=== PATIENT | female | born 2000 | race African-American/Black ===

== ENCOUNTER 2020-10-20 14:49 | Emergency (ER) | payer OTHER ==
--- OUTSIDE RECORDS SUMMARY | 2020-10-20 14:52 | XMS REPORT | Continuity of Care Document ---
:2000 Author Organization [facility] t Address [address] [place] [address] Care Team Providers Name Role Phone Nurse, Women's Health Attending Clinician Unavailable Rajinder Villagomez MD Attending Clinician Doctor Unassigned, Name Attending Clinician Unavailable Yousif RN Attending Clinician Unavailable 2, Lab Attending Clinician Unavailable Ultrasound, Mfm Attending Clinician Unavailable Shaye CARLISLE Attending Clinician Akinsidutch LEVY C Attending Clinician Ultrasound Attending Clinician Unavailable 1, Us Room Attending Clinician Unavailable Rajinder Villagomez MD Admitting Clinician Problems This patient has no known problems. Allergies, Adverse Reactions, Alerts This patient has no known allergies or adverse reactions. Medications This patient has no known medications. Procedures This patient has no known procedures. Encounters Start End Encounter Admission Attending Care Care Encounter Source Date/Time Date/Time Type Type Clinicians Facility Department ID 2020-09-14 2020-09-14 Nurse Nurse, [facility] 1.2.840.114 [id number] 10:23:31 10:38:15 Visit Dirk Minot 350.1.13.10 Formerly [facility] 4.2.7.2.686 [place] [phone] [address] 2020-06-16 2020-06-16 Nurse Nurse, [facility] 1.2.840.114 [id number] 13:59:43 14:23:08 Visit Dirk Minot 350.1.13.10 Formerly [facility] 4.2.7.2.686 Professio [phone] [address] 2020-04-15 2020-04-15 Telemedici Samanta Villagomez [facility] 1.2.840.114 [id number] 08:20:07 08:35:07 ne Visit Rajinder Smith 350.1.13.10 [place] 4.2.7.2.686 Professio [phone] [address] 2020-03-18 2020-03-18 Routine Samanta Villagomez [facility] 1.2.800.350 [id number] 16:07:42 17:24:35 Cam Sarah 350.1.13.10 Visit [place] 4.2.7.2.686 Professio [phone] [address] 2020-03-18 2020-03-18 Orders Doctor DENTON 1.2.840.114 [id number] 00:00:00 00:00:00 Only Unassigned, [facility] 350.1.13.10 [place] [facility] 4.2.7.2.686 [id number] [facility] 2020-03-09 2020-03-09 Nurse Nurse, [facility] 1.2.840.114 [id number] 14:40:58 14:55:58 Visit Women'alexey Smith 350.1.13.10 Formerly [facility] 4.2.7.2.686 Professio [phone] [address] 2020-03-06 2020-03-06 Nurse Nurse, [facility] 1.2.840.114 [id number] 14:12:11 14:45:07 Visit Women'alexey Smith 350.1.13.10 Formerly [facility] 4.2.7.2.686 Professio [phone] [address] 2020-03-04 2020-03-04 Nurse Nurse, [facility] 1.2.840.114 [id number] 10:11:19 10:47:00 Visit Women's Sarah 350.1.13.10 Formerly [facility] 4.2.7.2.686 Professio [phone] [address] 2020-02-29 2020-02-29 Nurse Renetta Dodd 1.2.840.114 [id number] 00:00:00 00:00:00 Triage [facility] 350.1.13.10 [facility]ITAL 4.2.7.2.686 [id number] 2020-02-25 2020-02-28 Hospital Samanta Villgaomez [facility] 1.2.840.114 [id number] 14:33:00 13:00:00 Encounter Cam [place] 350.1.13.10 [place] 4.2.7.2.686 [place] [id number] 2020-02-25 2020-02-25 Routine Samanta Villagomez [facility] 1.2.587.990 [id number] 13:11:47 14:08:21 Cam [place] 350.1.13.10 Visit [place] 4.2.7.2.686 Professio [phone] [facility] 2020-02-25 2020-02-25 Orders Doctor BERTIN 1.2.840.114 [id number] 00:00:00 00:00:00 Only Unassigned, NEDRA 350.1.13.10 [place] [facility] 4.2.7.2.686 [id number] 2020-02-18 2020-02-18 Case Samanta Villagomez [facility] 1.2.180.857 [id number] 00:00:00 00:00:00 Management Cam [place] 350.1.13.10 [place] 4.2.7.2.686 Professio [phone] [facility] 2020-02-17 2020-02-17 Treater 2, Adc Lab [facility] 1.2.840.114 [id number] 09:35:11 09:50:11 Visit [place] 350.1.13.10 [place] 4.2.7.2.686 Professio [id number] [facility] 2020-02-17 2020-02-17 Routine Samanta Villagomez [facility] [id number] [id number] 08:07:34 09:14:39 Cam [place] 350.1.13.10 Visit [place] 4.2.7.2.686 Professio [phone] [facility] 2020-02-17 2020-02-17 Orders Doctor BERTIN 1.2.840.114 [id number] 00:00:00 00:00:00 Only Unassigned, NEDRA 350.1.13.10 [place] [facility] 4.2.7.2.686 [id number] [facility] 2020-02-07 2020-02-07 Treater Ultrasound, [facility] 1.2.840.114 [id number] 08:26:07 08:50:45 Visit Adc Mfmeryl [place] 350.1.13.10 [place] 4.2.7.2.686 Professio [phone] [address] 2020-02-03 2020-02-03 Routine Vanaphan, [facility] 1.2.328.654 [id number] 09:35:20 10:16:17 Smitha [place] 350.1.13.10 Visit [place] 4.2.7.2.686 Professio [phone] [address] 2020-01-20 2020-01-20 Routine Samanta Villagomez [facility] 1.2.820.664 [id number] 11:02:47 11:50:33 Cam [place] 350.1.13.10 Visit [place] 4.2.7.2.686 Professio [phone] [address] 2020-01-09 2020-01-09 Telephone Samanta Villagomez [facility] 1.2.840.114 [id number] 00:00:00 00:00:00 Cam [place] 350.1.13.10 [place] 4.2.7.2.686 Professio [phone] [address] 2020-01-07 2020-01-07 Routine Shaye, [facility] 1.2.034.449 [id number] 16:01:23 16:33:08 Smitha [place] 350.1.13.10 Visit [place] 4.2.7.2.686 Professio [phone] [address] 2019-12-23 2019-12-23 Abstract Akinsidutch, [facility] 1.2.840.114 [id number] 00:00:00 00:00:00 Yesi Aviles COST CONTROL ANALYST 350.1.13.10 [facility] 4.2.7.2.686 MATERNAL [phone] & CHILD [address] [place] [address] 2019-12-20 2019-12-20 Treater Ultrasound, [facility] 1.2.840.114 [id number] 13:21:52 14:06:52 Visit Adc Mfm [place] 350.1.13.10 [place] 4.2.7.2.686 Professio [id number] [address] 2019-12-17 2019-12-17 Routine Samanta Villagomez [facility] 1.2.721.569 [id number] 13:00:30 13:42:20 Cam [place] 350.1.13.10 Visit [place] 4.2.7.2.686 Professio [id number] [address] 2019-11-22 2019-11-22 Treater 2, Adc Lab [facility] 1.2.840.114 [id number] 14:31:08 14:46:08 Visit [place] 350.1.13.10 [place] 4.2.7.2.686 Professio [phone] [address] 2019-11-19 2019-11-19 Initial VillagomezSamanta [facility] 1.2.134.243 [id number] 14:44:38 15:37:40 Cam [place] 350.1.13.10 Visit [place] 4.2.7.2.686 Professio [phone] [address] 2019-11-12 2019-11-12 Routine Akinsipe, [facility] 1.2.136.121 [id number] 13:18:28 14:09:03 Yesi C COST CONTROL ANALYST 350.1.13.10 Visit REGIONAL 4.2.7.2.686 MATERNAL [id number] & CHILD 107 [facility] 2019-10-28 2019-10-28 Abstract Akinpe, [facility] 1.2.840.114 [id number] 00:00:00 00:00:00 Yesi C COST CONTROL ANALYST 350.1.13.10 REGIONAL 4.2.7.2.686 MATERNAL [id number] & CHILD 107 [facility] 2019-10-23 2019-10-23 Treater Ultrasound, [facility] 1.2.840.114 [id number] 13:02:22 14:02:22 Visit Ang-Mfm COST CONTROL ANALYST 350.1.13.10 REGIONAL 4.2.7.2.686 MATERNAL [phone] & CHILD 369 [facility] 2019-10-15 2019-10-15 Routine Akinsipe, [facility] 1.2.607.843 [id number] 13:52:54 14:31:22 Yesi C COST CONTROL ANALYST 350.1.13.10 Visit REGIONAL 4.2.7.2.686 MATERNAL [id number] & CHILD 107 [facility] 2019-09-18 2019-09-18 Abstract Arnoldpe, [facility] 1.2.840.114 [id number] 00:00:00 00:00:00 Yesi C COST CONTROL ANALYST 350.1.13.10 REGIONAL 4.2.7.2.686 MATERNAL [id number] & CHILD 107 [facility] 2019-09-17 2019-09-17 Treater 1Jessica [facility] 1.2.840.114 [id number] 09:50:41 10:18:36 Visit Us Room COST CONTROL ANALYST 350.1.13.10 REGIONAL 4.2.7.2.686 MATERNAL [phone] & CHILD [address] [facility] 2019-09-16 2019-09-16 Initial Akinpe, [facility] 1.2.396.974 [id number] 13:26:45 14:18:57 Yesi C COST CONTROL ANALYST 350.1.13.10 Visit REGIONAL 4.2.7.2.686 MATERNAL [phone] & CHILD 107 [facility] 2019-09-16 2019-09-16 Orders Doctor BERTIN 1.2.840.114 [id number] 00:00:00 00:00:00 Only Unassigned, NEDRA 350.1.13.10 [place] [facility] 4.2.7.2.686 [phone] 009 Results This patient has no known results.
[2020-10-20] MEDS ORDERED: DIPHENHYDRAMINE 25 MG TAB/CAP ONE (16:02)
[2020-10-20] MEDS ORDERED: FAMOTIDINE 20 MG TAB ONE (16:03)
[2020-10-20] MEDS ORDERED: dexAMETHasone 10 MG/ML VIAL ONE (16:03)
--- NOTE | 2020-10-20 16:40 | EDPHYS ---
Physician Documentation [facility] Name: Danuta Dubose Age: 19 yrs Sex: Female : 2000 Arrival Date: 10/20/2020 Time: 14:50 Bed 24 Private MD: ED Physician Rudolph Cervantes HPI: 10/20 15:39 This 19 yrs old Black Female presents to ER via Ambulatory with complaints of Facial pm1 Swelling - Lip Swelling. 15:39 The patient presents with swelling of the lips, swelling to left side of face. Onset: pm1 The symptoms/episode began/occurred this morning. Associated signs and symptoms: Pertinent negatives: chest pain, fever, shortness of breath, sore throat. Possible causes: The patient has no known obvious cause for the symptoms. At home the patient or guardian has treated the symptoms with nothing. Severity of symptoms: in the emergency department the symptoms are unchanged. The patient has not experienced similar symptoms in the past. The patient has not recently seen a physician. Patient woke up this AM with lip swelling and swelling to the left side of face. Patient does not take any medications. Denies exposure to new foods. Historical: - Allergies: 15:37 No Known Allergies; aa5 - PMHx: 15:37 Preeclampsia; aa5 - PSHx: 15:37 None; aa5 - Immunization history:: Adult Immunizations unknown. - Social history:: Smoking status: Patient denies any tobacco usage or history of. ROS: 15:39 Constitutional: Negative for fever, chills, and weight loss, Eyes: Negative for injury, pm1 pain, redness, and discharge. 15:39 Cardiovascular: Negative for chest pain, palpitations, and edema, Respiratory: Negative for shortness of breath, cough, wheezing, and pleuritic chest pain, Abdomen/GI: Negative for abdominal pain, nausea, vomiting, diarrhea, and constipation, MS/Extremity: Negative for injury and deformity, Skin: Negative for injury, rash, and discoloration, Neuro: Negative for headache, weakness, numbness, tingling, and seizure. 15:39 ENT: Positive for lip swelling, Negative for sore throat, difficulty swallowing, difficulty handling secretions, hoarseness. 15:39 All other systems are negative. Exam: 15:39 Constitutional: This is a well developed, well nourished patient who is awake, alert, pm1 and in no acute distress. Head/Face: Normocephalic, atraumatic. 15:39 Skin: Warm, dry with normal turgor. Normal color with no rashes, no lesions, and no evidence of cellulitis. MS/ Extremity: Pulses equal, no cyanosis. Neurovascular intact. Full, normal range of motion. 15:39 Eyes: Exam is negative for acute changes, Periorbital structures: appear normal, no acute changes, Extraocular movements: no acute changes, Conjunctiva: no acute changes, no injection, Lids and lashes: appear normal, bilaterally, no acute changes. 15:39 ENT: Mouth: Lips: normal, moist, mild lower lip and left side of upper lip swelling, Oral mucosa: normal, pink and intact, moist, Gums: normal with healthy appearance, Tongue: is normal, No trismus present, Voice: no acute changes. 15:39 Neck: Exam negative for acute changes, ROM/movement: is normal, is supple. 15:39 Cardiovascular: Exam negative for acute changes, Rate: normal, Rhythm: regular, Pulses: no pulse deficits are appreciated. 15:39 Respiratory: Exam negative for acute changes, respiratory distress, shortness of breath, Breath sounds: are clear throughout. 15:39 Neuro: Exam negative for acute changes, Orientation: is normal, Mentation: is normal, Motor: is normal, moves all fours. Vital Signs: 15:36 BP 119 / 86; Pulse 99; Resp 18 S; Temp 99.0(TE); Pulse Ox 97% on R/A; Weight 68.04 kg aa5 (R); Height 5 ft. 4 in. (162.56 cm) (R); 15:36 Body Mass Index 25.75 (68.04 kg, 162.56 cm) aa5 MDM: 15:45 Data reviewed: vital signs. Data interpreted: Pulse oximetry: on room air is 97 %. pm1 Interpretation: normal. 15:46 Patient medically screened. pm1 16:38 Counseling: I had a detailed discussion with the patient and/or guardian regarding: the pm1 historical points, exam findings, and any diagnostic results supporting the discharge/admit diagnosis, the need for outpatient follow up, an allergy/technical sales specialist, a family practitioner, to return to the emergency department if symptoms worsen or persist or if there are any questions or concerns that arise at home. 16:41 ED course: Patient's child is 8 months old. Instructed to pump and dump breast milk pm1 while on medications. Administered Medications: 15:45 Drug: Pepcid (famotidine) 20 mg Route: PO; aa5 16:00 Follow up: Response: No adverse reaction iw 15:45 Drug: Benadryl (diphenhydrAMINE) 25 mg Route: PO; aa5 16:00 Follow up: Response: No adverse reaction iw 15:45 Drug: Decadron (dexamethasone) 10 mg Route: IM; Site: right gluteus; aa5 15:50 Follow up: Response: No adverse reaction iw Disposition: 10/21 07:10 Co-signature as Attending Physician, Rudolph Cervantes MD I agree with the assessment and brian plan of care. Disposition Summary: 10/20/20 16:39 Discharge Ordered Location: Home pm1 Problem: new pm1 Symptoms: have improved pm1 Condition: Stable pm1 Diagnosis - Localized swelling, mass and lump, head - allergic reaction pm1 Followup: pm1 - With: Emergency Department - When: As needed - Reason: Worsening of condition Followup: pm1 - With: Private Physician - When: 2 - 3 days - Reason: Recheck today's complaints, Continuance of care, Re-evaluation by your physician Discharge Instructions: - Discharge Summary Sheet pm1 - Allergies, Adult pm1 Forms: - Medication Reconciliation Form pm1 - Thank You Letter pm1 - Antibiotic Education pm1 - Prescription Opioid Use pm1 Prescriptions: - Benadryl 25 mg Oral Capsule - take 1 capsule by ORAL route every 6 hours As needed; 30 tablet; Refills: 0, pm1 Product Selection Permitted - Pepcid 20 mg Oral Tablet - take 1 tablet by ORAL route every 12 hours for 10 days; 20 tablet; Refills: 0, pm1 Product Selection Permitted - Prednisone 20 mg Oral Tablet - take 3 tablets by ORAL route once daily for 5 days; 15 tablet; Refills: 0, pm1 Product Selection Permitted Signatures: Rudolph Cervantes MD MD cha Calderon, Audri RN RN aa5 Oscar Ferrera, PAM DRAW OFF WORKER pm1 Radha Jacobo RN iw Corrections: (The following items were deleted from the chart) 10/20 15:38 15:37 PMHx: Hypertensive disorder; aa5 aa5
--- NOTE | 2020-10-20 16:40 | ER ---
Nurse's Notes [facility] Name: Danuta Dubose Age: 19 yrs Sex: Female : 2000 Arrival Date: 10/20/2020 Time: 14:50 Bed 24 Private MD: Diagnosis: Localized swelling, mass and lump, head-allergic reaction Presentation: 10/20 15:36 Chief complaint: Patient states: "my left ear got really warm and then my lips started aa5 swelling up on the left side". Coronavirus screen: At this time, the client does not indicate any symptoms associated with coronavirus-19. Ebola Screen: Patient negative for fever greater than or equal to 101.5 degrees Fahrenheit, and additional compatible Ebola Virus Disease symptoms. Initial Sepsis Screen: Does the patient meet any 2 criteria? No. Patient's initial sepsis screen is negative. Does the patient have a suspected source of infection? No. Patient's initial sepsis screen is negative. Risk Assessment: Do you want to hurt yourself or someone else? Patient reports no desire to harm self or others. Onset of symptoms was October 20, 2020. 15:36 Method Of Arrival: Ambulatory aa5 15:36 Acuity: VERITO 4 aa5 Historical: - Allergies: 15:37 No Known Allergies; aa5 - PMHx: 15:37 Preeclampsia; aa5 - PSHx: 15:37 None; aa5 - Immunization history:: Adult Immunizations unknown. - Social history:: Smoking status: Patient denies any tobacco usage or history of. Vital Signs: 15:36 BP 119 / 86; Pulse 99; Resp 18 S; Temp 99.0(TE); Pulse Ox 97% on R/A; Weight 68.04 kg aa5 (R); Height 5 ft. 4 in. (162.56 cm) (R); 15:36 Body Mass Index 25.75 (68.04 kg, 162.56 cm) aa5 ED Course: 14:50 Patient arrived in ED. ds1 15:36 Triage completed. aa5 15:36 Arm band placed on. aa5 15:38 Oscar Ferrera NP is PHCP. pm1 15:38 Rudolph Cervantes MD is Attending Physician. pm1 16:56 Radha Jacobo RN is Primary Nurse. iw Administered Medications: 15:45 Drug: Pepcid (famotidine) 20 mg Route: PO; aa5 16:00 Follow up: Response: No adverse reaction iw 15:45 Drug: Benadryl (diphenhydrAMINE) 25 mg Route: PO; aa5 16:00 Follow up: Response: No adverse reaction iw 15:45 Drug: Decadron (dexamethasone) 10 mg Route: IM; Site: right gluteus; aa5 15:50 Follow up: Response: No adverse reaction iw Outcome: 16:39 Discharge ordered by MD. pm1 16:57 Patient left the ED. iw Signatures: Tammie Carver ds1 Radha Jacobo RN RN iw Rosalia Painting RN RN aa5 Oscar Ferrera, PAM ELEVATOR TROUBLESHOOTER pm1 Corrections: (The following items were deleted from the chart) 15:38 15:37 PMHx: Hypertensive disorder; aa5 aa5
[2020-10-20 17:06] VITALS: BP 119/86; TEMP 99; O2SAT 97
== END 2020-10-20 16:57 | disposition home or self-care (01) ==
LOC: ER 14:49
DX: R22.9 Localized swelling, mass and lump, unspecified (principal)
CPT/HCPCS: 96372; 99282; J1100

== ENCOUNTER 2020-10-25 10:30 | Emergency (ER) | payer OTHER ==
--- OUTSIDE RECORDS SUMMARY | 2020-10-25 10:32 | XMS REPORT | Continuity of Care Document ---
:[address] [facility] t Address [address] [place] [address] Care Team Providers Name Role Phone Nurse, Women's Health Attending Clinician Unavailable Rajinder Villagomez MD Attending Clinician Doctor Unassigned, Name Attending Clinician Unavailable Yousif KAUFMAN Attending Clinician Unavailable 2, Lab Attending Clinician Unavailable Ultrasound, [facility] Attending Clinician Unavailable Shaye CARLISLE Attending Clinician Akinsipe BOP C Attending Clinician Ultrasound Attending Clinician Unavailable [...] Facility Department ID 2020-09-14 2020-09-14 Nurse Nurse, [facility] 1.2.840.114 [id number] 10:23:31 10:38:15 Visit Dirk Zuritaton 350.1.13.10 [facility] 4.2.7.2.686 [place] [phone] [address] 2020-06-16 2020-06-16 Nurse Nurse, [facility] 1.2.840.114 [id number] 13:59:43 14:23:08 Visit Dirk Zuritaton 350.1.13.10 [facility] 4.2.7.2.686 Professio [phone] [address] 2020-04-15 2020-04-15 Telemedici Samanta Villagomez [facility] [[email or web address]] 1.2.840.114 [id number] 08:20:07 08:35:07 ne Visit Rajinder Smith 350.1.13.10 [place] 4.2.7.2.686 Professio [phone] [address] 2020-03-18 2020-03-18 Routine Samanta Villagomez [facility] [[email or web address]] [id number] 16:07:42 17:24:35 Cam Sarah 350.1.13.10 Visit [place] 4.2.7.2.686 Professio [phone] [address] 2020-03-18 2020-03-18 Orders Doctor DENTON 1.2.840.114 [id number] 00:00:00 00:00:00 Only Unassigned, NEDRA 350.1.13.10 [place] [facility] 4.2.7.2.686 [phone] [facility] 2020-03-09 2020-03-09 Nurse Nurse, [facility] 1.2.840.114 [id number] 14:40:58 14:55:58 Visit Dirk Smith 350.1.13.10 [facility] 4.2.7.2.686 Professio [phone] [address] 2020-03-06 2020-03-06 Nurse Nurse, [facility] 1.2.840.114 [id number] 14:12:11 14:45:07 Visit Women'alexey Smith 350.1.13.10 [facility] 4.2.7.2.686 Professio [phone] [address] 2020-03-04 2020-03-04 Nurse Nurse, [facility] 1.2.840.114 [id number] 10:11:19 10:47:00 Visit Women'alexey Smith 350.1.13.10 [facility] 4.2.7.2.686 Professio [phone] [address] 2020-02-29 2020-02-29 Nurse Renetta Dodd 1.2.840.114 [id number] 00:00:00 00:00:00 Triage NED[facility] 350.1.13.10 HOSPITAL [phone] 019 2020-02-25 2020-02-28 Hospital Samanta Villagomez [facility] 1.2.840.114 [id number] 14:33:00 13:00:00 Encounter Cam [place] 350.1.13.10 [place] 4.2.7.2.686 [place] [phone] [phone] 2020-02-25 Routine Samanta Villagomez [facility] [[email or web address]] 1.2.468.470 [id number] 13:11:47 14:08:21 Cam [place] 350.1.13.10 Visit [place] 4.2.7.2.686 Professio [phone] [facility] 2020-02-25 2020-02-25 Orders Doctor BERTIN 1.2.840.114 [id number] 00:00:00 00:00:00 Only Unassigned, NEDRA 350.1.13.10 [place] [facility] [phone] 009 2020-02-18 2020-02-18 Case Samanta Villagomez [facility] [[email or web address]] 1.2.032.659 [id number] 00:00:00 00:00:00 Management Cam [place] 350.1.13.10 [place] 4.2.7.2.686 Professio [phone] [facility] 2020-02-17 2020-02-17 Dust Control Engineer 2, [facility] [[email or web address]] 1.2.840.114 [id number] 09:35:11 09:50:11 Visit [place] 350.1.13.10 [place] 4.2.7.2.686 Professio [phone] [facility] 2020-02-17 2020-02-17 Routine Samanta Villagomez [facility] [[email or web address]] 1.2.644.528 [id number] 08:07:34 09:14:39 Cam [place] 350.1.13.10 Visit [place] 4.2.7.2.686 Professio [phone] [facility] 2020-02-17 2020-02-17 Orders Doctor BERTIN 1.2.840.114 [id number] 00:00:00 00:00:00 Only Unassigned, NEDRA 350.1.13.10 [place] [facility] 4.2.7.2.686 [id number] [facility] 2020-02-07 2020-02-07 Dust Control Engineer Ultrasound, [facility] [[email or web address]] 1.2.840.114 [id number] 08:26:07 08:50:45 Visit Adc Mfm [place] 350.1.13.10 [place] 4.2.7.2.686 Professio [phone] [address] 2020-02-03 2020-02-03 Routine Vanaphan, [facility] 1.2.444.796 [id number] 09:35:20 10:16:17 [place]a [place] 350.1.13.10 Visit [place] 4.2.7.2.686 Professio [phone] [address] 2020-01-20 2020-01-20 Routine Samanta Villagomez [facility] [[email or web address]] 1.2.103.614 [id number] 11:02:47 11:50:33 Cam [place] 350.1.13.10 Visit [place] 4.2.7.2.686 Professio [phone] [address] 2020-01-09 2020-01-09 Telephone Samanta Villagomez [facility] [[email or web address]] 1.2.840.114 [id number] 00:00:00 00:00:00 Cam [place] 350.1.13.10 [place] 4.2.7.2.686 Professio [phone] [address] 2020-01-07 2020-01-07 Routine Shaye, [facility] [[email or web address]] 1.2.811.469 [id number] 16:01:23 16:33:08 Smitha [place] 350.1.13.10 Visit [place] 4.2.7.2.686 Professio [phone] [address] 2019-12-23 2019-12-23 Abstract Akinsidutch, [facility] [[email or web address]] 1.2.840.114 [id number] 00:00:00 00:00:00 Yesi Aviles EDUCATIONAL SIGN LANGUAGE INTERPRETER 350.1.13.10 [facility] 4.2.7.2.686 MATERNAL [phone] & CHILD [address] [place] [address] 2019-12-20 2019-12-20 Dust Control Engineer Ultrasound, [facility] 1.2.840.114 [id number] 13:21:52 14:06:52 Visit Adc Mfm [place] 350.1.13.10 [place] 4.2.7.2.686 Professio [phone] [address] 2019-12-17 2019-12-17 Routine Samanta Villagomez [facility] 1.2.126.515 [id number] 13:00:30 13:42:20 Cam [place] 350.1.13.10 Visit [place] 4.2.7.2.686 Professio [phone] [address] 2019-11-22 2019-11-22 Dust Control Engineer 2, [facility]c Lab [facility] 1.2.840.114 [id number] 14:31:08 14:46:08 Visit [place] 350.1.13.10 [place] 4.2.7.2.686 Professio [phone] [address] 2019-11-19 2019-11-19 Initial VillagomezSamanta [facility] 1.2.054.422 [id number] 14:44:38 15:37:40 Cam [place] 350.1.13.10 Visit [place] 4.2.7.2.686 Professio [phone] [address] 2019-11-12 2019-11-12 Routine Akinsipe, [facility] 1.2.714.325 [id number] 13:18:28 14:09:03 Yesi C EDUCATIONAL SIGN LANGUAGE INTERPRETER 350.1.13.10 Visit REGIONAL 4.2.7.2.686 MATERNAL [phone] & CHILD [address] 2019-10-28 2019-10-28 Abstract Akinsipe, [facility] 1.2.840.114 [id number] 00:00:00 00:00:00 Yesi C EDUCATIONAL SIGN LANGUAGE INTERPRETER 350.1.13.10 [facility] 4.2.7.2.686 MATERNAL [phone] & CHILD [address] 2019-10-23 2019-10-23 Dust Control Engineer Ultrasound, [facility] [[email or web address]] 1.2.840.114 [id number] 13:02:22 14:02:22 Visit Ang-[facility] EDUCATIONAL SIGN LANGUAGE INTERPRETER 350.1.13.10 [facility]AL 4.2.7.2.686 MATERNAL [phone] & CHILD [address] 2019-10-15 2019-10-15 Routine Akinpe, [facility] [[email or web address]] 1.2.834.848 [id number] 13:52:54 14:31:22 Yesi C EDUCATIONAL SIGN LANGUAGE INTERPRETER 350.1.13.10 Visit REGIONAL 4.2.7.2.686 MATERNAL [phone] & CHILD [address] 2019-09-18 2019-09-18 Abstract Arnolddutch, [facility] [[email or web address]] 1.2.840.114 [id number] 00:00:00 00:00:00 Yesi C EDUCATIONAL SIGN LANGUAGE INTERPRETER 350.1.13.10 REGIONAL 4.2.7.2.686 MATERNAL [phone] & CHILD [address] 2019-09-17 2019-09-17 Dust Control Engineer 1Jessica [facility] [[email or web address]] 1.2.840.114 [id number] 09:50:41 10:18:36 Visit Us Room EDUCATIONAL SIGN LANGUAGE INTERPRETER 350.1.13.10 REG[facility] 4.2.7.2.686 MATERNAL [phone] & CHILD [address] [facility] 2019-09-16 2019-09-16 Initial Arnolddutch [facility] [[email or web address]] 1.2.309.747 [id number] 13:26:45 14:18:57 Yesi 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
--- NOTE | 2020-10-25 12:40 | ER ---
Nurse's Notes [facility] Name: Danuta Dubose Age: 19 yrs Sex: Female : 2000 Arrival Date: 10/25/2020 Time: 10:30 Bed Waiting Private MD: Diagnosis: Coronavirus infection, unspecified Presentation: 10/25 10:41 Chief complaint: Patient states: was seen here for lip swelling, then she lost iw her taste and smell for three days, wants to be tested. Coronavirus screen: Client presents with at least one sign or symptom that may indicate coronavirus-19. Ebola Screen: Patient negative for fever greater than or equal to 101.5 degrees Fahrenheit, and additional compatible Ebola Virus Disease symptoms Patient denies exposure to infectious person. Patient denies travel to an Ebola-affected area in the 21 days before illness onset. No symptoms or risks identified at this time. Initial Sepsis Screen: Does the patient meet any 2 criteria? No. Patient's initial sepsis screen is negative. Does the patient have a suspected source of infection? No. Patient's initial sepsis screen is negative. Risk Assessment: Do you want to hurt yourself or someone else? Patient reports no desire to harm self or others. Onset of symptoms was October 22, 2020. 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 Screenin:45 Abuse screen: Denies threats or abuse. Denies injuries from another. Nutritional iw screening: No deficits noted. Tuberculosis screening: No symptoms or risk factors identified. Fall Risk None identified. Assessment: 12:00 General: Appears in no apparent distress. Behavior is calm, cooperative. Pain: Denies iw pain. Neuro: Level of Consciousness is awake, alert, obeys commands, Oriented to person, place, time, situation, Moves all extremities. Full function. Cardiovascular: Patient's skin is warm and dry. Respiratory: Respiratory effort is even, unlabored. Vital Signs: 10:41 BP 120 / 80; Pulse 78; Resp 16; Temp 97.2; Pulse Ox 98% on R/A; Weight 68.04 kg; Height iw 5 ft. 4 in. (162.56 cm); 10:41 Body Mass Index 25.75 (68.04 kg, 162.56 cm) iw ED Course: 10:30 Patient arrived in ED. as 10:42 Valencia [facility]C [facility] kb 10:42 Rudolph Cervantes MD is Attending Physician. kb 10:42 Triage completed. iw 12:44 Radha Jacobo, RN is Primary Nurse. iw 12:45 Arm band placed on. iw 12:45 No provider procedures requiring assistance completed. Patient did not have IV access iw during this emergency room visit. Administered Medications: No medications were administered Outcome: 12:40 Discharge ordered by . kb 12:49 Patient left the ED. kb Signatures: Valencia Mosher FNP-C FNP-Barbara Prieto as Radha Jacobo, RN RN iw Corrections: (The following items were deleted from the chart) 10:43 10:41 Pulse 78bpm; Resp 16bpm; Pulse Ox 98% RA; Temp 97.2F; 68.04 kg; Height 5 ft. 4 iw in.; BMI: 25.7; iw
--- NOTE | 2020-10-25 12:40 | EDPHYS ---
Physician Documentation [facility] Name: Danuta Dubose Age: 19 yrs Sex: Female : 2000 Arrival Date: 10/25/2020 Time: 10:30 Bed Waiting Private MD: ED Physician Rudolph Cervantes HPI: 10/25 13:30 This 19 yrs old Black Female presents to ER via Ambulatory with complaints of Covid kb Test. 13:31 Pt reports no taste and decreased smell for 3 days. Onset: The symptoms/episode kb began/occurred 3 day(s) ago. Severity of symptoms: At their worst the symptoms were mild in the emergency department the symptoms are unchanged. The patient has not experienced similar symptoms in the past. The patient has not recently seen a physician. Historical: - Allergies: 10:42 No Known Allergies; iw - PMHx: 10:42 PREECLAMPSIA; iw - Social history:: Smoking status: Patient denies any tobacco usage or history of. ROS: 13:29 Constitutional: Negative for fever, chills, and weight loss. kb 13:29 ENT: Positive for no taste and decreased smell. 13:29 All other systems are negative. Exam: 13:29 Constitutional: This is a well developed, well nourished patient who is awake, alert, kb and in no acute distress. Head/Face: Normocephalic, atraumatic. ENT: Moist Mucous membranes Respiratory: Respirations even and unlabored. No increased work of breathing, no retractions or nasal flaring. Skin: Warm, dry with normal turgor. Normal color. MS/ Extremity: Pulses equal, no cyanosis. Neurovascular intact. Full, normal range of motion. Neuro: Awake and alert, GCS 15, oriented to person, place, time, and situation. Moves all extremities. Normal gait. Psych: Awake, alert, with orientation to person, place and time. Behavior, mood, and affect are within normal limits. Vital Signs: 10:41 BP 120 / 80; Pulse 78; Resp 16; Temp 97.2; Pulse Ox 98% on R/A; Weight 68.04 kg; Height iw 5 ft. 4 in. (162.56 cm); 10:41 Body Mass Index 25.75 (68.04 kg, 162.56 cm) iw MDM: 10:42 Patient medically screened. kb 13:29 Data reviewed: vital signs, nurses notes. Data interpreted: Pulse oximetry: on room air kb is 98 %. Interpretation: normal. Counseling: I had a detailed discussion with the patient and/or guardian regarding: the historical points, exam findings, and any diagnostic results supporting the discharge/admit diagnosis, lab results, the need for outpatient follow up, a family practitioner, to return to the emergency department if symptoms worsen or persist or if there are any questions or concerns that arise at home. 10/25 12:29 Order name: SARS-COV-2 RT PCR; Complete Time: 12:30 EDMS Administered Medications: No medications were administered Disposition: 10/26 07:33 Co-signature as Attending Physician, Rudolph Cervantes MD I agree with the assessment and brian plan of care. Disposition Summary: 10/25/20 12:40 Discharge Ordered Location: Home kb Condition: Stable kb Diagnosis - Coronavirus infection, unspecified kb Followup: kb - With: Emergency Department - When: As needed - Reason: Worsening of condition Followup: kb - With: Private Physician - When: 2 - 3 days - Reason: Recheck today's complaints, Continuance of care, Re-evaluation by your physician Discharge Instructions: - Discharge Summary Sheet kb - Viral Respiratory Infection, Linx-Gx-Goxi kb - COVID-19 kb Forms: - Medication Reconciliation Form kb - Thank You Letter kb - Antibiotic Education kb - Prescription Opioid Use kb Signatures: Dispatcher [employer] EDValencia Key, LUIS SHELTON-Rudolph Sykes MD MD cha Williams, Irene, RN RN iw Corrections: (The following items were deleted from the chart) 10/25 11:15 10:43 CORONAVIRUS+MR.LAB.BRZ ordered. EDFL EDMS
[2020-10-25 12:55] VITALS: BP 120/80; TEMP 97.2; O2SAT 98
== END 2020-10-25 12:49 | disposition home or self-care (01) ==
LOC: ER 10:30
DX: U07.1 COVID-19 (principal)
CPT/HCPCS: 99281; U0003

== ENCOUNTER 2020-12-13 22:53 | Observation (INO) | payer OTHER ==
[2020-12-14] MEDS ORDERED: MAGNES/ALUMIN/SIMET 30ML UCUP ONE (00:13)
[2020-12-14] MEDS ORDERED: PANTOPRAZOLE 40 MG INJ ONE (00:13)
[2020-12-14] MEDS ORDERED: LIDOCAINE VISCOUS 2% SOLN 15 ML UDC ONE (00:13)
[2020-12-14 00:59] LABS: Absolute Lymphocytes (CBC) 2.2 K/uL (0.7-4.9); Basophils % 1.9 % (0-1.3); Hematocrit 40.4 % (36.0-45.0); Lymphocytes % 25.2 % (15.3-44.8); MPV 7.9 fL (7.6-11.3); RBC Red Blood Cell Count 5.16 M/uL (3.86-4.86)
[2020-12-14 01:17] LABS: AST/SGOT 214 U/L (15-37); Alkaline Phosphatase 180 U/L (45-117); BUN Blood Urea Nitrogen 8 mg/dL (7-18); Bicarbonate 25 mmol/L (21-32); Bilirubin Direct 0.6 mg/dL (0-0.2); Bilirubin Total 0.8 mg/dL (0.2-1.0); Glucose Level 113 mg/dL (74-106); Lipase 157 U/L (73-393); Potassium 3.9 mmol/L (3.5-5.1); Protein, Total 8.3 g/dL (6.4-8.2); Sodium Level 141 mmol/L (136-145)
[2020-12-14 01:18] LABS: ALT/SGPT 659 U/L (12-78)
[2020-12-14 01:36] LABS: Urine Blood Negative (Negative); Urine Glucose Negative (Negative); Urine Protein Negative (Negative); Urine pH 6.5 (5.0-7.0)
[2020-12-14 01:53] LABS: Urine Bacteria <20 /HPF (<20); Urine RBC <5 /HPF (NONE SEEN)
--- NOTE | 2020-12-14 02:32 | EDPHYS ---
Physician Documentation [facility] Name: Danuta Dubose Age: 20 yrs Sex: Female : 2000 Arrival Date: 12/13/2020 Time: 22:55 Bed 15 Private MD: ED Physician Franklin Guerrero HPI: 12/13 23:19 This 20 yrs old Black Female presents to ER via Ambulatory with complaints of rn Epigastric Pain. 23:19 The patient presents with abdominal pain in the epigastric area, in the right upper rn quadrant. Onset: The symptoms/episode began/occurred 2 day(s) ago. The symptoms do not radiate. Associated signs and symptoms: Pertinent positives: nausea, Pertinent negatives: blood in stools, chest pain, constipation, diarrhea, dysuria, fever, shortness of breath, vaginal discharge, vomiting, vomiting blood. The symptoms are described as achy. Modifying factors: The symptoms are alleviated by nothing, the symptoms are aggravated by touching the area. Severity of pain: At its worst the pain was moderate in the emergency department the pain has improved. The patient has experienced a previous episode. The patient has not recently seen a physician. Patient reports upper abdominal pain as well as low back pain that began 2 days ago. No fever. Associated with nausea. Denies any blood in stool or dark stool. Denies trauma. Denies chest pain. Reports history of GERD that worsened with recent .. Historical: - Allergies: 23:05 No Known Allergies; lh3 - Home Meds: 23:05 control daily [Active]; lh3 - PMHx: 23:05 PREECLAMPSIA; lh3 - Immunization history:: Adult Immunizations not up to date. - Social history:: Smoking status: Patient denies any tobacco usage or history of. - Family history:: not pertinent. - Hospitalizations: : No recent hospitalization is reported. ROS: 23:19 Constitutional: Negative for fever, chills, and weight loss, Eyes: Negative for injury, rn pain, redness, and discharge, Neck: Negative for injury, pain, and swelling, Cardiovascular: Negative for chest pain, palpitations, and edema, Respiratory: Negative for shortness of breath, cough, wheezing, and pleuritic chest pain, Abdomen/GI: Negative for vomiting, diarrhea, and constipation, Back: Negative for injury : Negative for injury, bleeding, discharge, and swelling, MS/Extremity: Negative for injury and deformity, Skin: Negative for injury, rash, and discoloration, Neuro: Negative for headache, weakness, numbness, tingling, and seizure. Exam: 23:19 Constitutional: This is a well developed, well nourished patient who is awake, alert, rn and in no acute distress. Head/Face: Normocephalic, atraumatic. Eyes: Periorbital areas with no swelling, redness, or edema. Cardiovascular: Regular rate and rhythm. No pulse deficits. Respiratory: No increased work of breathing, no retractions or nasal flaring. Abdomen/GI: Soft, mild epigastric and right upper quadrant tenderness. Mild left lower quadrant tenderness. No rebound. Negative Lester. Skin: Warm, dry with normal turgor. Normal color with no rashes, no lesions, and no evidence of cellulitis. MS/ Extremity: Pulses equal, no cyanosis. Neurovascular intact. Full, normal range of motion. Equal circumference. Neuro: Awake and alert, GCS 15 Vital Signs: 22:59 BP 123 / 87; Pulse 80; Resp 18; Temp 98.6; Pulse Ox 99% on R/A; Weight 68.04 kg; Height lh3 5 ft. 4 in. (162.56 cm); 12/14 00:15 BP 127 / 81; Pulse 77; Resp 16; Pulse Ox 99% ; cw2 01:00 BP 119 / 79; Pulse 75; Resp 15; Pulse Ox 97% ; cw2 12/13 22:59 Body Mass Index 25.75 (68.04 kg, 162.56 cm) 3 MDM: 12/13 23:07 Patient medically screened. rn 12/14 02:30 Differential diagnosis: cholecystitis, Cholelithiasis, gastritis, gastroesophageal rn reflux disease, non-specific abd pain, pancreatitis, Peptic Ulcer Disease. Data reviewed: vital signs, nurses notes, lab test result(s), radiologic studies, CT scan, ultrasound, and as a result, I will admit patient. Counseling: I had a detailed discussion with the patient and/or guardian regarding: the historical points, exam findings, and any diagnostic results supporting the discharge/admit diagnosis, lab results, radiology results, the need for further work-up and treatment in the hospital. Response to treatment: the patient's symptoms have mildly improved after treatment, and as a result, I will admit patient. Admission orders: after a detailed discussion of the patient's condition and case, the admit orders are written by me. ED course: Patient with likely early acute cholecystitis given thickening on CT and stones with sludge on ultrasound. CBD normal. Lipase normal. Will admit to Dr. Zuniga for lap ruben. N.p.o. and antibiotics ordered.. 12/13 23:16 Order name: Basic Metabolic Panel; Complete Time: 01:19 12/13 23:16 Order name: CBC with Diff; Complete Time: : 12/13 23:16 Order name: Hepatic Function; Complete Time: : 12/13 23:16 Order name: Lipase; Complete Time: : 12/13 23:16 Order name: Urine Microscopic Only; Complete Time: 02: 12/14 01:35 Order name: Urine Dipstick-Ancillary; Complete Time: 01:48 [facility] 12/13 23:16 Order name: US Abdomen Limited 12/13 23:16 Order name: CT Abd/Pelvis - IV Contrast Only 12/14 01:40 Order name: Urine --Ancillary (enter results); Complete Time: 02:01 [facility] 12/14 02:30 Order name: COVID-19 : Document "Date of Symptom Onset" if Symptomatic. 12/14 02:47 Order name: CORONAVIRUS [facility] 12/14 03:51 Order name: SARS-COV-2 RT PCR [facility] 12/13 23:16 Order name: IV Saline Lock; Complete Time: 00:23 12/13 23:16 Order name: Labs collected and sent; Complete Time: 00:23 12/13 23:16 Order name: Urine Dipstick-Ancillary (obtain specimen); Complete Time: 01:38 12/14 02:27 Order name: NPO; Complete Time: 04:57 rn Administered Medications: 12/13 23:53 Drug: GI Cocktail without - (Maalox Suspension 30 ml, Lidocaine Liquid 2 % 15 cw2 ml) Route: PO; 23:53 Drug: ProTONIX (pantoprazole) 40 mg Route: IVP; Site: left forearm; cw2 12/14 02:37 Drug: Zosyn (piperacillin-tazobactam) 3.375 grams Route: IVPB; Infused Over: 60 mins; cw2 Site: left antecubital; 03:11 Follow up: Response: No adverse reaction; IV Status: Completed infusion; IV converted cw2 to saline lock 03:39 CANCELLED (wrong orderr): morphine 4 mg IM once; RASS on ADMIN: Combtv4, Very Agttd3, cw2 Agttd2, Rstlss1, AlertClm0, Drwsy-1, Lt Sdtn-2, Mod Sdtn-3, Dp Sdtn-4, UnArsble-5 03:40 Drug: Zofran (Ondansetron) 4 mg Route: IVP; Site: left antecubital; cw2 03:40 Drug: morphine 4 mg Route: IVP; Site: left antecubital; cw2 04:56 Drug: morphine 4 mg Route: IVP; Site: left antecubital; cw2 Disposition Summary: 12/14/20 02:32 Hospitalization Ordered Hospitalization Status: Observation rn Provider: Braeden Zuniga rn Location: Telemetry/MedSurg (observation) rn Condition: Stable rn Problem: new rn Symptoms: have improved rn Bed/Room Type: Standard rn Room Assignment: 217(12/14/20 05:00) mw Diagnosis - Acute cholecystitis rn Forms: - Medication Reconciliation Form rn - SBAR form rn Signatures: Dispatcher [employer] EDMayra Salcedo RN RN mw Franklin Guerrero MD MD rn Hardee, Latisha, RN RN 3 Sterling Jacobo RN RN cw2 Corrections: (The following items were deleted from the chart) 03:39 03:39 morphine 4 mg IM once; RASS on ADMIN: Combtv4, Very Agttd3, Agttd2, Rstlss1, cw2 AlertClm0, Drwsy-1, Lt Sdtn-2, Mod Sdtn-3, Dp Sdtn-4, UnArsble-5 ordered. cw2 05:00 02:32 rn kelley
--- NOTE | 2020-12-14 02:32 | ER ---
Nurse's Notes [facility] Name: Danuta Dubose Age: 20 yrs Sex: Female : 2000 Arrival Date: 12/13/2020 Time: 22:55 Bed 15 Private MD: Diagnosis: Acute cholecystitis Presentation: 12/13 22:59 Chief complaint: Patient states: that she has been having heartburn without relief for lh3 the past 2 days. Took tums and ibuprofen \\T\\ 3pm . Has a Hx of acid reflux, but has been eating well since the last time, a few years ago. Notices it more with breathing. Denies any trouble swallowing or eating, and trauma to chest. States that it is waking her up out of her sleep. Pt states that she just had a baby 9 months ago and is on control. Coronavirus screen: Vaccine status: Patient reports being unvaccinated. At this time, the client does not indicate any symptoms associated with coronavirus-19. Ebola Screen: No symptoms or risks identified at this time. Initial Sepsis Screen: Does the patient meet any 2 criteria?. Initial Sepsis Screen: Does the patient have a suspected source of infection? No. Patient's initial sepsis screen is negative. Risk Assessment: Do you want to hurt yourself or someone else? Patient reports no desire to harm self or others. Onset of symptoms was December 13, 2020. Care prior to arrival: Medication(s) given: BRANDON at 4pm; Ibuprofen at 2pm. 22:59 Method Of Arrival: Ambulatory 3 22:59 Acuity: VERITO 3 3 Triage Assessment: 23:05 General: Appears in no apparent distress. Behavior is calm, cooperative, appropriate lh3 for age. Pain: Complains of pain in mid-sternal area Is. GI: Abdomen is flat, non-distended. Historical: - Allergies: 23:05 No Known Allergies; lh3 - Home Meds: 23:05 control daily [Active]; lh3 - PMHx: 23:05 PREECLAMPSIA; lh3 - Immunization history:: Adult Immunizations not up to date. - Social history:: Smoking status: Patient denies any tobacco usage or history of. - Family history:: not pertinent. - Hospitalizations: : No recent hospitalization is reported. Screenin:57 Abuse screen: Denies threats or abuse. Nutritional screening: No deficits noted. cw2 Tuberculosis screening: No symptoms or risk factors identified. Fall Risk None identified. Assessment: 23:56 Reassessment: No changes from previously documented assessment. General: Appears in no cw2 apparent distress. Pain: Complains of pain in abdomen Pain does not radiate. Pain currently is 5 out of 10 on a pain scale. Neuro: No deficits noted. Cardiovascular: No deficits noted. Respiratory: No deficits noted. GI: Reports lower abdominal pain, upper abdominal pain, normal bowel habits, tolerance of fluids, tolerance of food. : No deficits noted. Vital Signs: 22:59 BP 123 / 87; Pulse 80; Resp 18; Temp 98.6; Pulse Ox 99% on R/A; Weight 68.04 kg; Height 3 5 ft. 4 in. (162.56 cm); 12/14 00:15 BP 127 / 81; Pulse 77; Resp 16; Pulse Ox 99% ; cw2 01:00 BP 119 / 79; Pulse 75; Resp 15; Pulse Ox 97% ; cw2 12/13 22:59 Body Mass Index 25.75 (68.04 kg, 162.56 cm) [facility] Vitals: 12/13 23:56 Cardiac Rhythm Assessment Regular. cw2 ED Course: 22:55 Patient arrived in ED. wm 22:58 Franklin Guerrero MD is Attending Physician. rn 23:05 Triage completed. 3 23:05 Arm band placed on right wrist. 3 23:18 Sterling Jacobo RN is Primary Nurse. cw2 23:53 US Abdomen Limited In Process Unspecified. EDMS 23:57 No provider procedures requiring assistance completed. cw2 12/14 00:18 Patient has correct armband on for positive identification. Bed in low position. Call cw2 light in reach. Side rails up X2. 00:24 Initial lab(s) drawn, by ED staff, sent to lab. Inserted saline lock: 20 gauge in left 2 antecubital area, using aseptic technique. Blood collected. 01:37 Urine Microscopic Only Sent. cw2 02:08 CT Abd/Pelvis - IV Contrast Only In Process Unspecified. EDMS 02:32 Braeden Zuniag MD is Hospitalizing Provider. rn 04:56 CORONAVIRUS Sent. cw2 04:56 COVID-19 : Document "Date of Symptom Onset" if Symptomatic. Sent. cw2 Administered Medications: 12/13 23:53 Drug: GI Cocktail without - (Maalox Suspension 30 ml, Lidocaine Liquid 2 % 15 cw2 ml) Route: PO; 23:53 Drug: ProTONIX (pantoprazole) 40 mg Route: IVP; Site: left forearm; cw2 12/14 02:37 Drug: Zosyn (piperacillin-tazobactam) 3.375 grams Route: IVPB; Infused Over: 60 mins; cw2 Site: left antecubital; 03:11 Follow up: Response: No adverse reaction; IV Status: Completed infusion; IV converted cw2 to saline lock 03:39 CANCELLED (wrong orderr): morphine 4 mg IM once; RASS on ADMIN: Combtv4, Very Agttd3, cw2 Agttd2, Rstlss1, AlertClm0, Drwsy-1, Lt Sdtn-2, Mod Sdtn-3, Dp Sdtn-4, UnArsble-5 03:40 Drug: Zofran (Ondansetron) 4 mg Route: IVP; Site: left antecubital; cw2 03:40 Drug: morphine 4 mg Route: IVP; Site: left antecubital; cw2 04:56 Drug: morphine 4 mg Route: IVP; Site: left antecubital; cw2 Outcome: 02:32 Decision to Hospitalize by Provider. rn 06:01 Patient left the ED. cw2 Signatures: Dispatcher [employer] EDMS Franklin Guerrero MD MD rn Marsh, Wendy wm Hardee, Latisha, RN RN [facility] Sterling Jacobo RN RN cw2 Corrections: (The following items were deleted from the chart) 12/13 23:13 22:59 Chief complaint: Patient states: that she has been having heartburn without 3 relief for the past 2 days. Took tums and ibuprofen \\T\\ 3pm . Has a Hx of acid reflux, but has been eating well since the last time, a few years ago. Notices it more with breathing. Denies any trouble swallowing or eating. States that it is waking her up out of her sleep lh3
[2020-12-14] MEDS ORDERED: PIPERACIL/TAZO 3.375 GM VIAL IV ONE ×3 (02:55→18:20)
[2020-12-14] MEDS ORDERED: NA CHLORIDE 0.9% 100 ML ONE (02:57)
[2020-12-14] MEDS ORDERED: MORPHINE 4 MG/ML SYR ONE ×2 (03:54→05:17)
[2020-12-14] MEDS ORDERED: ONDANSETRON 4 MG/2 ML VIAL ONE ×2 (03:54→14:56)
[2020-12-14] MEDS ORDERED: ONDANSETRON 4 MG/2 ML VIAL IV PRN (05:13)
--- NOTE | 2020-12-14 05:42 | RAD REPORT ---
EXAM DESCRIPTION: US - Abdomen Exam Limited - 12/13/2020 11:53 pm CLINICAL HISTORY: ABD PAIN Preliminary findings provided at the time of the study. COMPARISON: No comparisons FINDINGS: Gallbladder is distended but not dilated. Lumen is filled with numerous small gallstones a nd a large volume of sludge. There is no wall thickening or pericholecystic fluid. No common duct stone or biliary tree dilatation identified. IMPRESSION: Well filled gallbladder packed with sludge and small stones. No wall edema or perichole cystic fluid. No biliary tree abnormality.
[2020-12-14] MEDS: D5 0.45 NS 1,000 ML IV SCH ×3 (06:26→20:51)
[2020-12-14 06:39] VITALS: BMI 26.5
[2020-12-14] MEDS ORDERED: MORPHINE 4 MG/ML SYR IV PRN ×3 (09:00→15:44)
--- NOTE | 2020-12-14 11:16 | RAD REPORT ---
EXAM DESCRIPTION: CT - Abdomen Pelvis W Contrast - 12/14/2020 5:25 am CLINICAL HISTORY: ABD PAIN TECHNIQUE: Axial computed tomography images of the abdomen and pelvis with intravenous contrast. S agittal and coronal reformatted images were created and reviewed. This CT exam was performed using one or more of the following dose reduction techniques: automated exposure control, adjustment of t he mA and/or kV according to patient size, and/or use of iterative reconstruction technique. COMPARISON: No relevant prior studies available. FINDINGS: Lung bases: Minimal bibasilar subsegmental atelectasis/pleural parenchymal scar. ABDOMEN: Liver: The liver is enlarged. Gallbladder and bile ducts: The gallbladder is distended. Mild gallbladder wall thickening. No calc ified gallstones. No ductal dilation. Pancreas: Unremarkable. No mass. No ductal dilation. Spleen: Unremarkable. No splenomegaly. Adrenals: Unremarkable. No mass. Kidneys and ureters: Unremarkable. No solid mass. No hydronephrosis. Stomach and bowel: Moderate stool. No obstruction. No appreciable mucosal thickening. PELVIS: Appendix: Normal caliber appendix. No findings to suggest acute appendicitis. Bladder: The urinary bladder is distended. Reproductive: The uterus is retroverted. No adnexal mass. ABDOMEN and PELVIS: Intraperitoneal space: Unremarkable. No free air. No significant fluid collection. Bones/joints: No acute fracture. No dislocation. Soft tissues: Unremarkable. Vasculature: Unremarkable. No abdominal aortic aneurysm. Lymph nodes: Unremarkable. No enlarged lymph nodes. IMPRESSION: 1. Distended and mildly thickened gallbladder. No calcified gallstones. Consider right upper quadrant ultrasound to evaluate for early acute cholecystitis. 2. Other findings as above. Electronically signed by: Skylar Peña MD 12/14/2020 2:19 AM CDT Due to temporary technical issues with the PACS/Fluency reporting system, reports are being signed by the in house radiologist without review as a courtesy to ensure prompt reporting. The interpreting r adiologist is fully responsible for the content of the report.
[2020-12-14] MEDS: PIPER TAZO 3.375 GM in NA CHLORIDE 0.9% 100 ML IV SCH ×2 (12:03→17:00)
[2020-12-14] MEDS ORDERED: Ringers Lactate 1,000 ML IV ONE ×2 (13:58→15:56)
[2020-12-14] MEDS ORDERED: SUCCINYLCHOLINE 20 MG/ML (10 ML) IV ONE (14:17)
[2020-12-14] MEDS ORDERED: MIDAZOLAM HCL 2 MG/2 ML INJ ONE (14:24)
[2020-12-14] MEDS ORDERED: FENTANYL CITR 250 MCG/5 ML ONE (14:24)
[2020-12-14] MEDS ORDERED: propofoL 200 MG/20 ML VIAL IV ONE (14:24)
[2020-12-14] MEDS ORDERED: dexAMETHasone 10 MG/ML VIAL ONE (14:56)
[2020-12-14] MEDS ORDERED: ROCURONIUM 50 MG/5 ML VIAL IV ONE (14:56)
[2020-12-14] MEDS: MEPERIDINE HCL 25 MG/ML SYR ONE ×3 (15:34→16:15)
[2020-12-14] MEDS ORDERED: GLYCOPYRROLATE 0.2 MG/ML SYR ONE (15:43)
[2020-12-14] MEDS ORDERED: KETOROLAC 30 MG/ML INJ ONE (15:43)
[2020-12-14] MEDS ORDERED: NEOSTIGMINE 1 MG/ML -5 ML ONE (15:43)
--- NOTE | 2020-12-14 15:50 | P.OP ---
Preoperative diagnosis: Acute cholecystitis with cholelithiasis Postoperative diagnosis: The same Primary procedure: Laparoscopic cholecystectomy Secondary procedure: Cholangiogram Other procedure(s): Sandee block Anesthesia: General Estimated blood loss: Less than 10 cc Specimen: Gallbladder and contents Operative Technique: The patient brought the operating room and placed supine on the table. After the induction of adequate general endotracheal anesthesia, the area of the abdomen was prepped with a DuraPrep solution, and she was draped in usual aseptic manner. A subumbilical incision was made. This was brought down through the skin and subcutaneous tissue. The Visiport was used to enter the peritoneal cavity and created pneumoperitoneum to approximately 12 mmHg. Under direct vision a 5 mm trocar was placed in the upper midline, and 2 other 5 mm trochars on the right lateral side of the abdomen attention was turned towards the right upper agusto drant. The patient was placed in reverse Trendelenburg. The table was then turned towards the left. We could see a markedly distended and acutely inflamed gallbladder that showed edema through the wall. It was necessary to aspirate the contents of the gallbladder so as to allow us to place a grasper on the fundus. This having been done lateral traction was applied. We were now able to identify Jo's pouch. Once again a grasper was placed on this and with gentle dissection we were able to expose the cystic duct and artery. There was noted the cystic duct was quite generous in size. The cystic duct ramirez actually appeared to be edematous as well. We applied a [place] onto this and gently milked any contents of the cystic duct up towards the gallbladder. A clip was now placed between the gallbladder and the cystic duct. An opening was made into the cystic duct through which were able to easily pass our cholangiocatheter. The cholangiogram was now obtained. It showed good flow of contrast into the duodenum. Our initial film showed the balloon laying in the common bile duct with no evidence of obstruction distally. On deflating the balloon and pulling it back into the cystic duct a pressure injection showed good visualization of the upper radicles with no filling defects noted. The catheter was now removed from the cystic duct. Clips were then applied to the c ystic duct. I was not happy with how they sat as the cystic duct was somewhat edematous. Hence a ligature of chromic was used to secure the distal portion of the cystic duct. 2 of these were used. An additional clip was then placed proximal to the clips as well. The cystic duct was now fully transected. Gentle dissection was begun now to take down the gallbladder. The artery was identified clipped in the usual manner. Electrocautery was now used to take the gallbladder off of the liver bed, placed into an Endo Catch, and bring it out through the umbilical trocar site. The the patient was returned to the neutral position on the OR table. A Sandee block was done of the anterior abdominal wall using 0.25% Marcaine. The umbilical trocar site was approximated using 2 absorbable sutures placed using the Endo Close. The pneumoperitoneum was now collapsed, the trochars withdrawn, and yumiko applied to the skin. At the end of the procedure she was in a stable condition was sent to the recovery room. Needle sponge instrument count were correct. No drains were placed. Complications: None Transferred to: Recovery Room Condition: Good
--- NOTE | 2020-12-14 16:15 | RAD REPORT ---
EXAM DESCRIPTION: RAD - Cholangiogram Oper-Xray Or - 12/14/2020 4:09 pm CLINICAL HISTORY: LAP FRENCH COMPARISON: Abdomen Pelvis W Contrast dated 12/14/2020 FINDINGS: Cystic duct injection performed by operating surgeon. Biliary tree appears normal caliber. No evidence of retained common duct stone. Total fluoro time: 0.1 minutes. Four images submitted. IMPRESSION: No evidence of common bile duct stone seen.
[2020-12-14] MEDS ORDERED: MEPERIDINE HCL 25 MG/ML SYR ONE (16:39)
[2020-12-14 22:51] VITALS: O2SAT 97
[2020-12-15] MEDS: PIPER TAZO 3.375 GM in NA CHLORIDE 0.9% 100 ML IV SCH ×2 (00:07→09:00)
[2020-12-15] MEDS ORDERED: PIPERACIL/TAZO 3.375 GM VIAL IV ONE ×2 (00:13→09:21)
[2020-12-15] MEDS: HYDROCODONE/APAP 7.5/325 MG TAB PO PRN ×2 (00:18→09:37)
[2020-12-15] MEDS: D5 0.45 NS 1,000 ML IV SCH ×2 (04:10→13:13)
--- NOTE | 2020-12-15 13:50 | P.DS ---
Admission Date: 12/14/20 Discharge Date: 12/15/20 Primary Care Provider: Efrain Disposition: ROUTINE DISCHARGE Discharge Condition: GOOD Reason for Admission: Acute postoperative abdominal pain Procedures: Laparoscopic cholecystectomy with cholangiogram, tap block Brief History of Present Illness: Patient presented the emergency room with a 4-day history of right upper quadrant abdominal pain for diagnosis and treatment. Hospital Course: Patient was found to have cholecystitis with cholelithiasis, biliary colic. She was brought to the operating room where she underwent a laparoscopic cholecystectomy with a normal intraoperative cholangiogram. She was admitted postoperatively for observation and pain control. This morning she is up ambulating, tolerating a diet, and her pain is controlled with oral medication. She has been deemed fit for discharge. Vital Signs/Physical Exam: Temp Pulse Resp BP Pulse Ox 97.8 F 76 16 108/72 91 12/15/20 12:00 12/15/20 12:00 12/15/20 12:00 12/15/20 12:00 12/15/20 12:00 Laboratory Data at Discharge: WBC 8.60 K/uL (4.3-10.9) 12/14/20 00:19 Hgb 13.1 g/dL (12.0-15.0) 12/14/20 00:19 Hct 40.4 % (36.0-45.0) 12/14/20 00:19 Plt Count 429 K/uL (152-406) H 12/14/20 00:19 Sodium 141 mmol/L (136-145) 12/14/20 00:19 Potassium 3.9 mmol/L (3.5-5.1) 12/14/20 00:19 BUN 8 mg/dL (7-18) 12/14/20 00:19 Creatinine 0.65 mg/dL (0.55-1.3) 12/14/20 00:19 Glucose 113 mg/dL (74-106) H 12/14/20 00:19 Total Bilirubin 0.8 mg/dL (0.2-1.0) 12/14/20 00:19 AST 214 U/L (15-37) H 12/14/20 00:19 ALT 659 U/L (12-78) H* 12/14/20 00:19 Alkaline Phosphatase 180 U/L (45-117) H 12/14/20 00:19 Lipase 157 U/L (73-393) 12/14/20 00:19 Home Medications: NK [No Home Meds] 12/14/20 Physician Discharge Instructions: You may shower, diet as tolerated, any questions or problems, go to the emergency room or contact me. See me next week in my office, call for an appoi ntment. Diet: Regular Activity: Ad mariangel Followup: Braeden Zuniga MD [ACTIVE - CAN ADMIT] -
[2020-12-15 16:50] VITALS: BP 124/73; TEMP 97.7
--- NOTE | 2020-12-17 13:56 | P.HP ---
Date of Service: 12/14/20 PC: This 20-year-old female presented to the emergency room with severe right upper quadrant abdominal pain for diagnosis and treatment. HPC: Patient is been having aches pain for the 4 days prior to her admission. She describes it as a feeling of fullness up underneath the rib cage. It radiated into her back. This is actually been off and on for the last few months. PSHx: Negative PMHx: 1 para 1, vaginal delivery 8 months ago, still breast-feeding Social Hx: No known allergies Sys R: No cough, wheeze, shortness of breath. No chest pain or palpitations. Denies any urinary complaints O/E: Awake alert vital signs are stable HEENT: Nonicteric Chest: Air entry equal bilaterally Abd: Tender with guarding in the right upper quadrant [place]: Intact Data: CT scan and ultrasound show cholecystitis with cholelithiasis Impression: Cholecystitis with cholelithiasis, biliary colic Plan: I will take to the operating room for laparoscopic, possible open cholecystectomy with a cholangiogram. The risks of this procedure have been discussed. The risks of bleeding, infection, injury to bile ducts blood vessels and intestines has been described. The possible need for open and/or further surgeries and procedures was described. She understands and wants us to proceed.
== END 2020-12-15 16:08 | disposition home or self-care (01) ==
LOC: ER 22:53 → ERHOLD 12-14 02:53 → 2ND 12-14 05:19
PROVIDERS: ADMIT Surgery; ATTEND Surgery
PROC: BF00YZZ Plain Radiography of Bile Ducts using Other Contrast (ICD-10-PCS; 2020-12-14)
PROC: 0FT44ZZ Resection of Gallbladder, Percutaneous Endoscopic Approach (ICD-10-PCS; principal; 2020-12-14 13:30)
DX: K80.12 Calculus of gallbladder with acute and chronic cholecystitis without obstruction (principal); K21.9 Gastro-esophageal reflux disease without esophagitis; Z20.822 Contact with and (suspected) exposure to COVID-19
CPT/HCPCS: 85025; 80048; 36415; 81025; 80076; 88304; 83690; 74177; 74300; 76705; 94010 ×2; 99284; 47563; U0003; Q9967; J2704; J0330; J2543 ×5; J2250; J3010; J1100; J2175 ×2; J2710; G0378 ×4; J7799 ×3; J7120 ×2; J2405 ×3; 81003; 81015